=== PATIENT | female | born 1960 | race Caucasian/White ===

== ENCOUNTER 2017-04-16 20:07 | Inpatient (IN) | payer OTHER ==
[~2017-04-16] VITALS: Ht 175.3 cm; Wt 85.3 kg
[~2017-04-16 20:07] MED LIST: CLON2TAB PO; FLUO20CA36 PO; LAMO100T2 PO; LORA2TAB95 PO
--- NOTE | 2017-04-16 20:21 | NUR ---
TO BED 3 [facility] PARAMEDICS FROM HOME C/O ALTERED, SLURRED SPEECH, SLOW TO RESPOND. PT AAOX2, NO ACUTE DISTRESS NOTED, RESP EVEN AND UNLABORED. PLACE PT ON CARDIAC MONITORING, CONTINUOUS POX. SL 20G TO L HAND FACTORY MAINTENANCE MANAGER. ER MD AT BEDSIDE TO EVAL PT WITH ORDERS RECEIVED. WILL CARRY OUT ORDERS.
[2017-04-16 20:57] LABS: BASOPHILS % (AUTO) 0.3 % (0.0-2.0); EOSINOPHILS % (AUTO) 0.2 % (0.0-6.0); HEMATOCRIT 34 % (33-45); HEMOGLOBIN 11.5 g/dL (11.5-14.8); LYMPHOCYTES # (AUTO) 0.5 /CMM (0.8-4.8); LYMPHOCYTES % (AUTO) 5.1 % (20.0-44.0); MEAN CORPUSCULAR HEMOGLOBIN 31 PG (26.0-33.0); MEAN CORPUSCULAR HGB CONC 34 g/dl (31.0-36.0); MEAN CORPUSCULAR VOLUME 92 fL (82-100); MONOCYTES # (AUTO) 0.2 /CMM (0.1-1.30); MONOCYTES % (AUTO) 2.4 % (2.0-12.0); NEUTROPHILS # (AUTO) 8.9 /CMM (1.8-8.9); PLATELET COUNT (AUTO) 260 /CMM (150-450); RED BLOOD CELL COUNT(AUTO) 3.65 MIL/uL (4.0-5.2); WHITE BLOOD COUNT (AUTO) 9.6 K/uL (4.3-11.0)
--- NOTE | 2017-04-16 20:59 | NUR ---
PT TRANSPORTED TO RADIOLOGY FOR CT HEAD.
--- NOTE | 2017-04-16 21:06 | NUR ---
PT BACK FROM RADIOLOGY. PENDING CT RESULT.
[2017-04-16 21:12] LABS: CALCIUM, SERUM 8.8 mg/dL (8.5-10.1); CARBON DIOXIDE 29 mmol/L (21-32); CHLORIDE 99 mmol/L (98-107); CREATININE 0.8 mg/dL (0.6-1.3); GLUCOSE 111 mg/dL (74-106); POTASSIUM 3.7 mmol/L (3.5-5.1); SODIUM SERUM 137 mmol/L (136-145); UREA NITROGEN, BLOOD 11 mg/dL (7-18)
[2017-04-16 21:20] LABS: TROPONIN I < 0.017 ng/mL (0.00-0.056)
[2017-04-16 21:29] LABS: ALANINE AMINOTRANSFERASE 14 U/L (12-78); ALBUMIN 4.1 g/dL (3.4-5.0); ALKALINE PHOSPHATASE 96 U/L (46-116); ASPARTATE AMINOTRANSFERASE 19 U/L (15-37); BILIRUBIN,DIRECT 0.1 mg/dL (0.0-0.2); BILIRUBIN,TOTAL 0.4 mg/dL (0.2-1.0); TOTAL PROTEIN, SERUM 7.8 g/dL (6.4-8.2)
[2017-04-16 21:35] LABS: ACETAMINOPHEN < 2 ug/ml (10-30); ALCOHOL, BLOOD < 3 mg/dL (0-0); SALICYLATE 1.3 mg/dL (2.8-20.0)
[2017-04-16 21:41] LABS: APPEARANCE,URINE Clear (CLEAR); BILIRUBIN,URINE Negative (NEGATIVE); BLOOD, URINE Trace-intact Ery/uL (NEGATIVE); COLOR,URINE Yellow (YELLOW); KETONES,URINE Negative (NEGATIVE); LEUKOCYTE ESTERASE ,URINE Negative (NEGATIVE); NITRITE, URINE Negative (NEGATIVE); PH,URINE 6.5 (5.0-8.0); PROTEIN,URINE Negative (NEGATIVE); UGLUCOSE Negative (NEGATIVE); UROBILINOGEN,URINE 0.2 EU/dL (0.2)
[2017-04-16 22:04] LABS: BACTERIA,URINE Rare /HPF (None Seen); SQUAMOUS EPITHELIAL CELL,UR Few /HPF (None Seen); WBC,URINE 0-2 /HPF (0-3)
--- NOTE | 2017-04-16 22:17 | NUR ---
NOTED PT HAVING A SEIZURE. ER MD MADE AWARE, ER MD AT BEDSIDE TO EVAL PT WITH ORDERS RECEIVED. RN TO MEDICATE PT.
[2017-04-16] MEDS ORDERED: LORAZEPAM INJ 2 MG/ML VIAL ONE (22:18)
--- NOTE | 2017-04-16 22:18 | NUR ---
PT VOMITTED X1, ER AWARE WITH ORDERS RECEIVED. PLACE PT ON SEIZURE PRECAUTION WITH PADDED SIDERAILS. PT REMAINS ON CARDIAC MONITORING, CONTINUOUS POX, O2@24L/NC. WILL CONTINUE TO MONITOR PT CLSOELY. CALL LIGHT WITHIN REACH.
--- NOTE | 2017-04-16 22:46 | NUR ---
PT ASLEEP, NO ACUTE DISTRESS NOTED, RESP EVEN AND UNLABORED. CALL LIGHT WITHIN REACH.
--- NOTE | 2017-04-16 22:57 | NUR ---
REPORT CALLED TO TELE 1 FRANCISCO DENTON. WILL TRANSPORT PT VIA ACLS PROTOCOL.
[2017-04-16] MEDS ORDERED: ONDANSETRON HCL/PF 4 MG/2 ML VIAL IV ONE (23:00)
[2017-04-16] MEDS ORDERED: LORAZEPAM INJ 2 MG/ML VIAL IV ONE (23:00)
[2017-04-16] MEDS ORDERED: ONDANSETRON HCL/PF 4 MG/2 ML VIAL ONE (23:04)
--- NOTE | 2017-04-16 23:10 | NUR ---
RN HARDY ADMITTING NOTES PT 57 YR OLD FEMALE, RECEIVED FROM ER, S/P SEIZURE, VOMITING AND POSITIVE FOR BEZODIAZIPINES OD.ACCORDING TO ER NURSE PT DID NOT ASPIRATE. SEDATED AT THIS TIME D/T ATIVAN GIVEN FOLLOWING SEIZURE. UNABLE TO OBTAINE DATA FROM PT. ON NC @ 4L, VS STABLE BP 145/65, HR 83, 97.7, 97%, NO SKIN ISSUES NOTED, WITH SL #20G PATENT, SAFETY MEASURES UNDERTAKE, SEIZURE PRECAUTION, DR NATH ADMITTING PT, CAME DOWN TO SEE PT, UNABLE TO ASSESS WELL D/T PT ALTERED MENTAL STATE. ALL ADMITTING ORDERS ENTERED PER PROTOCOL. ALL PT NEEDS MET, WILL CONT TO MONITOR.
[2017-04-16] MEDS ORDERED: IV NS 0.9% 1,000 ML IV PRN (23:18)
[2017-04-16] MEDS ORDERED: ACETAMINOPHEN 650 MG/SUPP.RECT RC PRN (23:30)
[2017-04-16] MEDS ORDERED: Z GUARD REMEDY 2 OZ OINT TP PRN (23:30)
[2017-04-16] MEDS ORDERED: LORAZEPAM INJ 2 MG/ML VIAL IV PRN (23:30)
[2017-04-16] MEDS ORDERED: ONDANSETRON HCL/PF 4 MG/2 ML VIAL IVP PRN (23:30)
[2017-04-16 23:42] VITALS: BP 146/65
[2017-04-17] VITALS: BP 146/65
[2017-04-17] MEDS: ENOXAPARIN SODIUM 40 MG/0.4 ML DISP.SYRIN SQ SCH ×2 (00:23→23:41)
[2017-04-17 04:00] VITALS: BP 136/71
--- NOTE | 2017-04-17 06:32 | NUR ---
RN HARDY CLOSING NOTE ENDORSED PT TO AM SHIFT NURSE, PT BEGINING TO BE MORE ALERT, STILL DROWSEY AND CONFUSION AOX2 UNSTEADY WHEN PT INSISTED WANTS TO USE BATHROOM. PROVIDED BED SIDE COMODE, NOT ABLE TO FOCUS. SO PT STILL SEDATED NOT ABLE TO COLLECT OR ASSESS PT, WILL ENDORSE TO AM SHIFT TO MONITOR SAFETY WELL PT LOC. REORIENTED THROUGH SHIFT.
[2017-04-17 07:23] LABS: BASOPHILS % (AUTO) 0.2 % (0.0-2.0); EOSINOPHILS % (AUTO) 0.1 % (0.0-6.0); HEMATOCRIT 34 % (33-45); HEMOGLOBIN 11.5 g/dL (11.5-14.8); LYMPHOCYTES # (AUTO) 1.4 /CMM (0.8-4.8); LYMPHOCYTES % (AUTO) 14.1 % (20.0-44.0); MEAN CORPUSCULAR HEMOGLOBIN 32 PG (26.0-33.0); MEAN CORPUSCULAR HGB CONC 34 g/dl (31.0-36.0); MEAN CORPUSCULAR VOLUME 94 fL (82-100); MONOCYTES # (AUTO) 0.6 /CMM (0.1-1.30); MONOCYTES % (AUTO) 5.6 % (2.0-12.0); PLATELET COUNT (AUTO) 305 /CMM (150-450); RDW COEFFICIENT OF VARIATION 13.2 (11.5-15.0); RED BLOOD CELL COUNT(AUTO) 3.59 MIL/uL (4.0-5.2)
[2017-04-17 07:41] LABS: THYROID STIMULATING HORMONE 0.719 uIU/mL (0.358-3.74)
[2017-04-17 07:47] LABS: CALCIUM, SERUM 9.1 mg/dL (8.5-10.1); CREATININE 0.7 mg/dL (0.6-1.3); PHOSPHORUS 3.5 mg/dL (2.5-4.9); POTASSIUM 3.9 mmol/L (3.5-5.1)
[2017-04-17 08:00] VITALS: BP 105/57
[2017-04-17] MEDS: PANTOPRAZOLE 40 MG VIAL IV SCH (08:50)
[2017-04-17] MEDS: IV D5/ 0.9% NACL 1,000 ML IV PRN (13:36)
[2017-04-17 16:06] VITALS: BP 105/64
--- NOTE | 2017-04-17 18:59 | NUR ---
MED SURG CLOSING NOTE PT CONTINUED TO BE LETHARGIC AND CONFUSED THROUGH OUT SHIFT. ALL SAFETY MEASURES IN PLACE. REPORT GIVEN TO PM RN FOR ELADIO. PT CONTINUE TO BE NPO DUE TO CONFUSION. IV CHANGED TO D5NS PER MARCE Calderón.PRafat
--- NOTE | 2017-04-17 19:30 | NUR ---
RN OPENING NOTES RECEIVED REPORT FROM ALEXANDER SINGH. PATIENT A/A/O X1-2, ABLE TO MAKE SOME NEEDS KNOWN BUT SOME CONFUSION NOTED. BREATHING EVEN & UNLABORED, ON O2 2L VIA NC & SATING WELL. DENIES SOB OR DIFFICULTY BREATHING. SKIN WARM, DRY & INTACT W/ PULSES PRESENT. LEFT WRIST IV #22 INTACT W/ DRESSING CDI & IVF D5 NS @ 75 ML/HR. DENIES ANY PAIN OR DISCOMFORT @ THIS TIME. SAFETY MEASURES IN PLACE W/ SIDE RAILS UP, BED LOCKED & IN LOWEST POSITION & CALL LIGHT WITHIN REACH. BED ALARM ON FOR FALL PRECAUTION & INSTRUCTED TO CALL FOR ASSISTANCE. SEIZURE PRECAUTIONS MAINTAINED. WILL CONTINUE TO MONITOR.
[2017-04-17 20:00] VITALS: BP 93/62
[2017-04-17] MEDS ORDERED: ACETAMINOPHEN 325 MG TABLET PO PRN (20:30)
--- NOTE | 2017-04-17 20:31 | NUR ---
RN NOTES SPOKE TO DR PORTILLO DE REGARDING PATIENT'S DIET BECAUSE PATIENT IS MORE AWAKE NOW. PER MD, CANCEL NPO & CHANGE TO REGULAR DIET. ORDER CARRIED OUT.
[2017-04-18] MEDS: IV D5/ 0.9% NACL 1,000 ML IV PRN (02:59)
[2017-04-18 04:00] VITALS: BP 127/38
--- NOTE | 2017-04-18 06:50 | NUR ---
RN CLOSING NOTES NO SEIZURE ACTIVITY DURING SHIFT W/ SEIZURE PRECAUTIONS MAINTAINED. PATIENT RESTING COMFORTABLY IN BED. WILL ENDORSE ELADIO TO ONCOMING NURSE.
[2017-04-18 07:29] LABS: CALCIUM, SERUM 8.7 mg/dL (8.5-10.1); CREATININE 0.8 mg/dL (0.6-1.3); POTASSIUM 3.4 mmol/L (3.5-5.1)
--- NOTE | 2017-04-18 07:46 | NUR ---
MS RN: INITIAL NOTE RECEIVED PT A/OX1-2. SOMETIMES CONFUSED. ON MS. USES BEDSIDE COMMODE WITH ASSIST. SKIN INTACT. L WRIST #22 RUNNING D5 NS AT 75ML/HR. SITE CLEAR AND PATENT. NO SOB NOTED. NO PAIN NOTED. NO DISTRESS NOTED. RESTING COMFORTABLY IN BED. CALL LIGHT WITHIN REACH.
[2017-04-18 08:00] VITALS: BP 110/57
[2017-04-18] MEDS: PANTOPRAZOLE 40 MG VIAL IV SCH (08:01)
[2017-04-18 12:00] VITALS: BP 110/57
[2017-04-18] MEDS ORDERED: POTASSIUM CHLORIDE 10 MEQ TABLET.SA PO ONE (13:00)
[2017-04-18 16:00] VITALS: BP 110/57
--- NOTE | 2017-04-18 18:57 | NUR ---
MS RN: CLOSING NOTE PT TOOK ALL MEDICATIONS ON TIME. NO ADVERSE REACTIONS NOTED. NO PAIN NOTED. NO SOB NOTED. BRP WITH ASSIST. SKIN INTACT. PSYCH CONSULT IN PLACE. L WORST #22 HL. NO IV FLUIDS RUNNING. NO BLEEDING OR REDNESS NOTED. RESTING COMFORTABLY IN BED. CALL LIGHT WITHIN REACH.
[2017-04-18 20:00] VITALS: BP 121/61
--- NOTE | 2017-04-18 20:00 | NUR ---
MS RN NOTE: PATIENT RESTING IN BED, NO ACUTE DISTRESS NOTED. BREATHING EVEN AND UNLABORED, NO SOB NOTED. IV TO LEFT WRIST IN PLACE. BED LOCKED AND IN LOWEST POSITION, CALL LIGHT IN REACH, WILL CONTINUE TO MONITOR.
[2017-04-18 20:45] VITALS: BP 121/61
[2017-04-18] MEDS: ENOXAPARIN SODIUM 40 MG/0.4 ML DISP.SYRIN SQ SCH (23:30)
--- NOTE | 2017-04-18 23:45 | NUR ---
MS RN NOTE: PATIENT REFUSED LOVENOX ORDERED, EXPLAINED RISK AND BENEFITS OF MEDICATION, BUT CONTINUES TO REFUSE. WILL CONTINUE TO MONITOR.
[2017-04-19 04:30] VITALS: BP 105/51
--- NOTE | 2017-04-19 06:30 | NUR ---
MS RN NOTE: PATIENT RESTING IN BED, NO ACUTE DISTRESS NOTED. BREATHING EVEN AND UNLABORED, NO SOB NOTED. IV TO LEFT WRIST IN PLACE. BED LOCKED AND IN LOWEST POSITION, CALL LIGHT IN REACH, WILL ENDORSE TO DAY NURSE TO CONTINUE WITH PLAN OF CARE.
[2017-04-19 08:00] VITALS: BP 120/66
[2017-04-19] MEDS: PANTOPRAZOLE 40 MG VIAL IV SCH (08:01)
--- NOTE | 2017-04-19 10:12 | NUR ---
MEDSURGE TRANSFER NOTE PT STABLE REPORT CALLED EXT 190 SPOKE TO WAREHOUSE PRODUCTION WORKER. PT WHEELED TO 2ND FLOOR BY DUONG SMITH. BELONGINGS SENT WITH PATIENT. ALL SAFETY PRECAUTIONS IN PLACE.
--- NOTE | 2017-04-19 10:54 | NUR ---
MS/user experience manager Patient received from MS1. Upon arrival, patient stating that she is going to go home today and does not want to be here, wanting MD to be called for order. MD called per patient request. Oriented to new surroundings, call light within reach. Will continue to monitor and ensure safety.
--- NOTE | 2017-04-19 12:00 | NUR ---
MS/RN S/B Dr Haddad Seen by Dr Haddad - patient cleared for discharge.
--- NOTE | 2017-04-19 15:00 | NUR ---
MS/RN S/B Isauro Zapata OIL BURNER MECHANIC Seen by OIL BURNER MECHANIC - patient to be discharged to home today as not hold able. Prescription written for seizure and anti depressant medications.
--- NOTE | 2017-04-19 17:27 | NUR ---
MS/counting machine operator Patient discharged to home in stable condition. All personal belongings with patient. Exit care signed, provided with copy of medical record. Educated patient as to the importance of following up with primary care doctor and only taking medications as ordered. Stated that she understood all of the education. Provided with paper prescription to take to any pharmacy for six pills only as primary doctor would order any further medications necessary after review. Escorted to main lobby by SARAH, taxi voucher provided.
== END 2017-04-19 17:00 | disposition home or self-care (01) | DRG 812 ==
LOC: ER 20:09 → TELE-TD 23:31 → MEDSG1 04-17 11:10 → MEDSG2 04-19 10:02
DX: T42.4X2A Poisoning by benzodiazepines, intentional self-harm, initial encounter (principal); G92 Toxic encephalopathy; F29 Unspecified psychosis not due to a substance or known physiological condition; F39 Unspecified mood [affective] disorder; E87.6 Hypokalemia; G40.909 Epilepsy, unspecified, not intractable, without status epilepticus; F41.9 Anxiety disorder, unspecified; Z91.5 Personal history of self-harm; F32.9 Major depressive disorder, single episode, unspecified; Z88.0 Allergy status to penicillin; Z88.2 Allergy status to sulfonamides; Z87.820 Personal history of traumatic brain injury; Y92.009 Unspecified place in unspecified non-institutional (private) residence as the place of occurrence of the external cause; R41.0 Disorientation, unspecified
CPT/HCPCS: 36415; 70450-TC; 80048-TC; 80061-TC; 80076-TC; 80305; 81000-TC; 82542; 83735-TC; 84100-TC; 84443-TC; 84484-TC; 85025-TC; 95819-TC; A4606; C9113; G0480; J1650; J3490; J7030; J7042; J7070; Z7610

== ENCOUNTER 2017-11-25 14:50 | Emergency (ER) | payer OTHER ==
[~2017-11-25] VITALS: Ht 172.7 cm; Wt 72.6 kg
--- NOTE | 2017-11-25 15:15 | NUR ---
BBRA 87 C/O FACE PAIN S/P TRIP AND FALL ON SIDEWALK. PT AAOX3, VSS. DENIES KO, DIZZINESS, N/V, ARM WEAKNESS @ THIS TIME. PT SEEN & EVAL'D BY DR. HENRIQUEZ & WILL CONT TO MONITOR.
[2017-11-25 15:24] LABS: BASOPHILS % (AUTO) 0.7 % (0.0-2.0); EOSINOPHILS % (AUTO) 2.1 % (0.0-6.0); HEMATOCRIT 30 % (33-45); HEMOGLOBIN 9.7 g/dL (11.5-14.8); LYMPHOCYTES % (AUTO) 39.2 % (20.0-44.0); MEAN CORPUSCULAR HGB CONC 33 g/dl (31.0-36.0); MEAN CORPUSCULAR VOLUME 94 fL (82-100); MONOCYTES # (AUTO) 0.3 /CMM (0.1-1.30); MONOCYTES % (AUTO) 6.6 % (2.0-12.0); NEUTROPHILS # (AUTO) 2.6 /CMM (1.8-8.9); NEUTROPHILS % (AUTO) 51.4 % (43.0-81.0); PLATELET COUNT (AUTO) 316 /CMM (150-450); RDW COEFFICIENT OF VARIATION 13.3 (11.5-15.0); RED BLOOD CELL COUNT(AUTO) 3.16 MIL/uL (4.0-5.2); WHITE BLOOD COUNT (AUTO) 5.1 K/uL (4.3-11.0)
--- NOTE | 2017-11-25 15:25 | NUR ---
PT TO CT VIA [facility].
[2017-11-25 16:26] LABS: CALCIUM, SERUM 8.1 mg/dL (8.5-10.1); CARBON DIOXIDE 24 mmol/L (21-32); CHLORIDE 99 mmol/L (98-107); CREATININE 0.9 mg/dL (0.6-1.3); GLUCOSE 92 mg/dL (74-106); POTASSIUM 4.1 mmol/L (3.5-5.1); SODIUM SERUM 134 mmol/L (136-145); UREA NITROGEN, BLOOD 9 mg/dL (7-18)
[2017-11-25 16:45] LABS: ALANINE AMINOTRANSFERASE 15 U/L (12-78); ALBUMIN 3.8 g/dL (3.4-5.0); ALKALINE PHOSPHATASE 85 U/L (46-116); ASPARTATE AMINOTRANSFERASE 14 U/L (15-37); BILIRUBIN,DIRECT 0.1 mg/dL (0.0-0.2); BILIRUBIN,TOTAL 0.3 mg/dL (0.2-1.0); TOTAL PROTEIN, SERUM 6.8 g/dL (6.4-8.2)
[2017-11-25 16:46] LABS: ACETAMINOPHEN 0 ug/ml (10-30); ALCOHOL, BLOOD < 3 mg/dL (0-0); SALICYLATE 0.6 mg/dL (2.8-20.0)
--- NOTE | 2017-11-25 17:13 | NUR ---
Patient discharged to home in stable condition. Written and verbal after care instructions given. Patient verbalizes understanding of instruction.
--- NOTE | 2017-11-25 17:14 | NUR ---
PT REFUSED TO GIVE URINE SAMPLE, AWARE & OK'D IT.
[2017-11-25 17:16] VITALS: BP 137/71
== END 2017-11-25 17:17 | disposition home or self-care (01) ==
LOC: ER 14:51
DX: S09.8XXA Other specified injuries of head, initial encounter (principal); F99 Mental disorder, not otherwise specified; D64.9 Anemia, unspecified; E87.1 Hypo-osmolality and hyponatremia; F32.9 Major depressive disorder, single episode, unspecified; F41.9 Anxiety disorder, unspecified; Z88.0 Allergy status to penicillin; Z88.2 Allergy status to sulfonamides; Z88.1 Allergy status to other antibiotic agents; Z88.8 Allergy status to other drugs, medicaments and biological substances; Z60.2 Problems related to living alone; Z79.899 Other long term (current) drug therapy; W01.198A Fall on same level from slipping, tripping and stumbling with subsequent striking against other object, initial encounter; Y93.K1 Activity, walking an animal; Y92.59 Other trade areas as the place of occurrence of the external cause; Y99.8 Other external cause status
CPT/HCPCS: 36415; 70450; 80048; 80076; 80329; 85025; 99285; A4606; G0480 ×2; Z7610